=== PATIENT | male | born 1975 | race Caucasian/White ===

== ENCOUNTER 2018-02-21 17:46 | Emergency (ER) | payer BC ==
[~2018-02-21] VITALS: Ht 177.8 cm; Wt 144.0 kg
[~2018-02-21 17:46] MED LIST: IBUP-1984 PO
[2018-02-21 21:05] VITALS: BP 168/98
== END 2018-02-21 21:09 | disposition home or self-care (01) ==
LOC: ER 17:47
DX: S99.922A Unspecified injury of left foot, initial encounter (principal); E78.00 Pure hypercholesterolemia, unspecified; E11.9 Type 2 diabetes mellitus without complications; I10 Essential (primary) hypertension; Z98.890 Other specified postprocedural states; W01.0XXA Fall on same level from slipping, tripping and stumbling without subsequent striking against object, initial encounter; Y93.89 Activity, other specified; Y92.89 Other specified places as the place of occurrence of the external cause; Y99.8 Other external cause status
CPT/HCPCS: 73630; 99284; A6449

== ENCOUNTER 2020-11-09 21:23 | Emergency (ER) | payer BC ==
[~2020-11-09] VITALS: Ht 177.8 cm; Wt 134.1 kg
[2020-11-09] MEDS ORDERED: normal saline 1000ml 1,000 ML IV ONE (21:50)
[2020-11-09 22:14] LABS: ABG BASE EXCESS -1.6 mmol/L (-2.0-2.0); ABG OXYGEN SATURATION 94.1 % (94-97); ABG PCO2 (T) 36.2 mmHg (35.0-48.0); ABG PO2 (T) 73.9 mmHg (75.0-100.0); ALLEN'S TEST POSITIVE; FMetHb 0.3 % (0.0-1.5); FO2Hb 92.9 % (94-97); PATIENT TEMPERATURE 37.9; TOTAL HEMOGLOBIN 17.2 G/dl (14.0-18.0)
[2020-11-09 22:29] LABS: BASOPHILS % (AUTO) 0.4 % (0-1); EOSINOPHILS % (AUTO) 0.1 % (0-6); HEMATOCRIT 49.2 % (42.0-52.0); HEMOGLOBIN 17.2 g/dl (14.0-17.9); LYMPHOCYTES # (AUTO) 0.6 X10'3 (1.1-4.8); MEAN CORPUSCULAR VOLUME 88.6 FL (78-98); MEAN PLATELET VOLUME 9.3 FL (7.4-10.4); MONOCYTES # (AUTO) 0.3 X10'3 (0-0.9); MONOCYTES % (AUTO) 8.2 % (2-12); NEUTROPHILS # (AUTO) 2.8 X10'3 (1.8-7.7); NEUTROPHILS % (AUTO) 75.3 % (42-75); PLATELET COUNT 148 X10'3 (140-440); RED BLOOD COUNT 5.55 X10'6 (4.70-6.10); RED CELL DISTRIBUTION WIDTH 13.1 % (11.5-14.5); WHITE BLOOD COUNT 3.7 X10'3 (4.5-11.0)
[2020-11-09 22:41] LABS: PARTIAL THROMBOPLASTIN TIME 26 SECONDS (22-32)
[2020-11-09 22:42] LABS: TOTAL CARBON DIOXIDE 26.3 MMOL/L (24-32)
--- NOTE | 2020-11-09 23:11 | NUR ---
faxed consent for Bam to pharmacy
[2020-11-09 23:13] LABS: ALANINE AMINOTRANSFERASE 60 U/L (12-78); ALBUMIN 2.9 G/DL (3.4-5.0); ALBUMIN/GLOBULIN RATIO 0.6 (1.1-1.5); ALKALINE PHOSPHATASE 88 IU/L (46-116); BILIRUBIN,TOTAL 0.7 MG/DL (0.1-1.0); BLOOD UREA NITROGEN 16 MG/DL (7-18); BUN/CREATININE RATIO 11.4 (5.4-32.0); C-REACTIVE PROTEIN 3.22 MG/DL (0.0-0.5); MAGNESIUM 1.9 MG/DL (1.5-2.4); TOTAL PROTEIN 7.5 G/DL (6.4-8.2); eGFR 55 ML/MIN
[2020-11-09 23:29] LABS: ANION GAP 7 (8-16); ASPARTATE AMINO TRANSFERASE 39 U/L (10-37); CALCIUM 8.8 MG/DL (8.5-10.1); CHLORIDE 93 MMOL/L (99-107); SODIUM 126 MMOL/L (135-145)
[2020-11-09 23:35] LABS: POTASSIUM 3.7 MMOL/L (3.5-5.1)
[2020-11-09 23:40] LABS: GLUCOSE 625 MG/DL (70-104)
[2020-11-09] MEDS ORDERED: insulin regular, human 10 units/0.1 ml syringe SQ ONE (23:50)
[2020-11-09] MEDS ORDERED: CefTRIAXone/D5W-Rocephin 1gm 50 ML IV ONE (23:50)
[2020-11-09] MEDS ORDERED: azithromycin/NS 500mg/250ml 250 ML IV ONE (23:50)
[2020-11-10] MEDS ORDERED: NORMAL SALINE IV ONE ×2
[2020-11-10] MEDS ORDERED: BAMLANIVIMAB IV ONE ×2
--- NOTE | 2020-11-10 00:24 | NUR ---
BAM ran from 2356 to 012- pt tolerated well and does not have any signs or symptoms of a reaction. will cont to monitor.
[2020-11-10] MEDS ORDERED: amLODIPine 5mg tablet PO ONE (00:50)
[2020-11-10] MEDS ORDERED: AMLO5TAB4 PO (00:52)
[2020-11-10] MEDS ORDERED: CEFD300C3 PO (00:52)
--- NOTE | 2020-11-10 01:56 | NUR ---
Rocephin infusing, zithromax to be administered when rocephin finished.
[2020-11-10] MEDS ORDERED: ondansetron/PF 4mg/2ml inj IV ONE (02:35)
--- NOTE | 2020-11-10 02:35 | NUR ---
Pt complaint of nausea after starting zithromax. MD notified. New order for zofran, but continue IV for now.
[2020-11-10 03:50] VITALS: BP 183/104
== END 2020-11-10 05:33 | disposition home or self-care (01) ==
LOC: ER 21:24
DX: U07.1 COVID-19 (principal); R06.02 Shortness of breath; E11.65 Type 2 diabetes mellitus with hyperglycemia; G47.33 Obstructive sleep apnea (adult) (pediatric); I10 Essential (primary) hypertension; E78.00 Pure hypercholesterolemia, unspecified; Z86.14 Personal history of Methicillin resistant Staphylococcus aureus infection; Z90.89 Acquired absence of other organs; Z79.899 Other long term (current) drug therapy
CPT/HCPCS: 36415; 36600; 71045; 80053; 82803; 82948; 83735; 83880; 84145; 84484; 85018; 85025; 85379; 85610; 85730; 86140; 93005; 96361; 96365; 96366; 96368; 96372; 96375; 99285; J0456; J0696; J1815; J2405; J7030; M0239; Q0239

== ENCOUNTER 2024-03-27 09:30 | Day surgery (SDC) | payer BC ==
[2024-03-23 16:11] LABS: BASOPHILS # (AUTO) 0.1 X10'3 (0-0.2); EOSINOPHILS # (AUTO) 0.1 X10'3 (0-0.9); EOSINOPHILS % (AUTO) 1.5 % (0-6); HEMATOCRIT 50.6 % (42.0-52.0); HEMOGLOBIN 17.2 g/dl (14.0-17.9); LYMPHOCYTES # (AUTO) 2.1 X10'3 (1.1-4.8); LYMPHOCYTES % (AUTO) 24.9 % (21-51); MEAN CORPUSCULAR HEMOGLOBIN 30.5 PG (27.0-31.0); MEAN CORPUSCULAR VOLUME 89.6 FL (78-98); MEAN PLATELET VOLUME 9.1 FL (7.4-10.4); MONOCYTES # (AUTO) 0.5 X10'3 (0-0.9); MONOCYTES % (AUTO) 6.2 % (2-12); NEUTROPHILS # (AUTO) 5.7 X10'3 (1.8-7.7); NEUTROPHILS % (AUTO) 66.4 % (42-75); PLATELET COUNT 180 X10'3 (140-440); RED BLOOD COUNT 5.65 X10'6 (4.70-6.10); WHITE BLOOD COUNT 8.6 X10'3 (4.5-11.0)
[2024-03-23 16:19] LABS: ALBUMIN 3.7 G/DL (3.4-5.0); ANION GAP 7 (8-16); BLOOD UREA NITROGEN 12 MG/DL (7-18); CALCIUM 9.5 MG/DL (8.5-10.1); CHLORIDE 102 MMOL/L (99-107); CREATININE 1.33 MG/DL (0.60-1.10); GLUCOSE 156 MG/DL (70-104); POTASSIUM 4.7 MMOL/L (3.5-5.1); SODIUM 137 MMOL/L (135-145); TOTAL CARBON DIOXIDE 28.1 MMOL/L (24-32); eGFR 57 ML/MIN
[2024-03-23 16:36] LABS: APTT 29 SECONDS (22-32); PROTHROMBIN TIME 11.2 SECONDS (9.0-12.0)
[2024-03-27] VITALS (12 sets, daily range): BP systolic 92–118; BP diastolic 48–83; PULSE 72–125; RESP 10–17; TEMP 98.3; O2SAT 96–98
[~2024-03-27] VITALS: Ht 177.8 cm; Wt 138.9 kg
[~2024-03-27 09:30] MED LIST changes: +AMLO5TAB4 PO; -IBUP-1984 PO
[2024-03-27] MEDS ORDERED: INSU200I4 SQ (09:56)
[2024-03-27] MEDS ORDERED: ROSU40TA22 PO (09:56)
[2024-03-27] MEDS ORDERED: EMPA25TA PO (09:56)
[2024-03-27] MEDS ORDERED: SACU1TAB7 PO (09:56)
[2024-03-27] MEDS ORDERED: SPIR25TA5 PO (09:56)
[2024-03-27] MEDS ORDERED: GABA-530 PO (09:56)
[2024-03-27] MEDS ORDERED: PARO40TA4 PO (09:56)
[2024-03-27] MEDS ORDERED: POTA10CA85 PO (09:56)
[2024-03-27] MEDS ORDERED: AMI200T PO (09:56)
[2024-03-27] MEDS ORDERED: FURO80TA3 PO (09:56)
[2024-03-27] MEDS ORDERED: OMEG-166 PO (09:56)
[2024-03-27] MEDS ORDERED: BUPR-94 PO (09:56)
[2024-03-27] MEDS ORDERED: APIX5TAB3 PO (09:56)
[2024-03-27] MEDS ORDERED: MULT-227 PO (09:56)
[2024-03-27] MEDS ORDERED: METO-384 PO (09:56)
[2024-03-27] MEDS ORDERED: INSU100I8 INJ (09:56)
[2024-03-27] MEDS: normal saline 1000ml 1,000 ML IV SCH (10:30)
[2024-03-27] MEDS: MIDAZolam 1mg/ml 10ml vial IV ONE (13:32)
[2024-03-27] MEDS: fentaNYL/PF 50MCG/1 ML 2ML syringe IV ONE (13:32)
== END 2024-03-27 15:05 | disposition home or self-care (01) ==
LOC: SSTAY O 09:30
PROVIDERS: ATTEND Student in an Organized Health Care Education/Training Program
DX: I48.91 Unspecified atrial fibrillation (principal); I25.2 Old myocardial infarction; I11.0 Hypertensive heart disease with heart failure; I50.9 Heart failure, unspecified; E11.9 Type 2 diabetes mellitus without complications; E78.00 Pure hypercholesterolemia, unspecified; I48.92 Unspecified atrial flutter; G47.33 Obstructive sleep apnea (adult) (pediatric); Z79.01 Long term (current) use of anticoagulants; Z79.899 Other long term (current) drug therapy
CPT/HCPCS: 36415; 80048; 85025; 85610; 85730; 92960; 93005; J2250; J3010; J7030